=== PATIENT | male | born 1985 | race Asian ===

== ENCOUNTER → 2019-09-13 10:46 | Outpatient (CLI) | payer OTHER, SELFPAY ==
[2019-09-13 12:31] LABS: Influenza A - CEPHEID Flu A NEGATIVE (NEGATIVE); Influenza B - CEPHEID Flu B NEGATIVE (NEGATIVE)
[2019-09-16 06:03] LABS: COVID19 Sendout Not Detected (Not Detected)
== END ==
PROVIDERS: Visit Provider Registered Nurse
DX: R05 Cough (principal); R06.02 Shortness of breath; R50.9 Fever, unspecified
CPT/HCPCS: 87502